=== PATIENT | female | born 1985 | race Caucasian/White ===

== ENCOUNTER 2016-09-07 13:17 | Emergency (ER) | payer OTHER ==
[~2016-09-07] VITALS: Ht 157.5 cm; Wt 57.0 kg
[~2016-09-07 13:17] MED LIST: ACET1TAB40 PO; IBUP-1542 PO
[2016-09-07 13:20] VITALS: Ht 157.5 cm; Wt 57.0 kg
== END 2016-09-07 14:40 | disposition left against medical advice (07) ==
LOC: FTE 13:17
DX: Z53.21 Procedure and treatment not carried out due to patient leaving prior to being seen by health care provider (principal)

== ENCOUNTER 2017-05-02 10:08 | Outpatient (CLI) | payer OTHER ==
[~2017-05-02] VITALS: Ht 157.5 cm; Wt 64.5 kg
[2017-05-02 10:32] VITALS: BP 113/68; PULSE 68; RESP 19; Ht 157.5 cm; Wt 64.5 kg
--- NOTE | 2017-05-02 11:33 | PN ---
Triage Information Date/Time Reason for visit: Oligohydramnios Weeks of Gestation 25+ /Para 3/2 Diabetes: none Hypertention: none Objective Vital Signs Date Time Temp Pulse Resp B/P Pulse Ox O2 Delivery O2 Flow Rate FiO2 05/02/17 10:32 98.6 68 19 113/68 99 Room Air Heart Rate: 140's Contractions: None Results/Medications Results 24 hrs Laboratory Tests Test 05/02/17 10:25 Membranes Rupture NEGATIVE Disposition: Discharge Assessment/Plan ROM + (neg) WALDO 7.8 --->f/u with primary MD precautions discussed BRITTANI ARAIZA M.D. May 02, 2017 11:33
--- NOTE | 2017-05-02 11:48 | TRIAGE ---
OB Triage Datetime Report Generated by CPN: 05/02/2017 11:48 Datetime: 05/02/2017 10:37 Maternal Assessment Level of Consciousness: Fully Conscious DTR's/Clonus: DTRs 1+ Headache: Denies Blurred Vision: Yes Respiratory Effort: Unlabored Breath Sounds, Left: Clear and Equal Breath Sounds, Right: Clear and Equal Nausea/Vomiting: Denies RUQ Epigastric Pain: Denies Facial Edema: None Labor Evaluation Frequency: NONE Monitor Mode: External Resting Tone [place]: Relaxed Heart Rate FHR Baseline Rate: 145 Monitor Mode: External US Variability: Moderate 6-25 bpm Accelerations: 10X10 Decelerations: None Category: Category I Pain Assessment Pain Scale: 0 Pain Presence: None/Denies Pain Type: N/A Pain Goal: 3 Datetime: 05/02/2017 10:20 Assessment Type: Triage EGA: 25.1 Maternal Assessment Level of Consciousness: Fully Conscious DTR's/Clonus: DTRs 2+; No Clonus Headache: Denies Blurred Vision: No Respiratory Effort: Unlabored; Regular Rhythm; Equal Expansion Breath Sounds, Left: Clear and Equal Breath Sounds, Right: Clear and Equal Nausea/Vomiting: Denies RUQ Epigastric Pain: Denies Lower Extremities Edema: None Degree: None Upper Extremities Edema: None Degree: None Facial Edema: None Fall Risk Assessment History of Falling: (0) No Secondary Diagnosis: (0) No Ambulatory Aid: (0) Bedrest/Nurse Assist IV Therapy: (0) No Gait: (0) Normal/Bedrest/Immobile Mental Status: (0) Oriented to Own Ability Fall Score: 0 Fall Risk Score Definition: No Risk: No action required Datetime: 05/02/2017 10:03 Time of Arrival: 05/02/2017 10:03 Arrived By: Ambulatory Arrived From: Home Chief Complaint: PT CAME IN [facility] + TO R/O SROM. U/S DONE AT [facility] SHOWS WALDO OF 7.8. PT STATES THAT SHE HAS BEEN LEAKING FLUID FOR OVER 1 MONTH ALREADY. PT STATES THAT SHE DID NOT MENTION THIS TO HER MD BECAUSE SHE THOUGH THAT IT WAS NORMAL Movement: Present Contractions: Denies/Absent Rupture of Membranes: Denies Vaginal Discharge: Denies Recent Sexual Intercouse: Denies Abdominal Trauma: Not Applicable Additional Patient Complaints: NONE Time Provider Notified: 05/02/2017 11:20 Provider Notified: PHUONG Initial Plan: ROM PLUS
== END 2017-05-02 11:37 | disposition home or self-care (01) ==
LOC: L-D 10:08 → OBT 10:08
PROVIDERS: ATTEND Obstetrics & Gynecology
DX: O41.02X0 Oligohydramnios, second trimester, not applicable or unspecified (principal); Z3A.25 25 weeks gestation of pregnancy
CPT/HCPCS: 84112; Z7500; G0463

== ENCOUNTER 2017-06-15 16:56 | Outpatient (CLI) | END 2017-06-15 21:28 | disposition home or self-care (01) ==

== ENCOUNTER 2017-06-17 18:40 | Outpatient (CLI) | END 2017-06-18 00:25 | disposition home or self-care (01) ==

== ENCOUNTER 2017-07-03 16:17 | Outpatient (CLI) | END 2017-07-03 18:20 | disposition home or self-care (01) ==

== ENCOUNTER 2017-07-07 18:58 | Outpatient (CLI) | END 2017-07-07 21:25 | disposition home or self-care (01) ==

== ENCOUNTER 2017-07-11 20:59 | Outpatient (CLI) | END 2017-07-11 22:46 | disposition home or self-care (01) ==

== ENCOUNTER 2017-07-17 10:15 | Inpatient (IN) | END 2017-07-23 15:40 | disposition home or self-care (01) | DRG 765 ==